=== PATIENT | male | born 1990 | race Hispanic/Latino ===

== ENCOUNTER 2021-11-13 13:13 | Inpatient (IN) | payer OTHER, SELFPAY ==
[2021-11-13 15:26] VITALS: BMI 20.5
[2021-11-13] MEDS ORDERED: Morphine 4 MG/ML VIAL SLOW IVP SCH (16:50)
[2021-11-13] MEDS ORDERED: Dextrose 50% Abboject 50 ML SYRINGE SLOW IVP PRN (16:59)
[2021-11-13] MEDS ORDERED: Dextrose 5% in Water 1,000 ML IV PRN (16:59)
[2021-11-13] MEDS ORDERED: Ondansetron PF 4 MG/2 ML Vial IVP PRN (16:59)
[2021-11-13] MEDS ORDERED: Morphine 4 MG/ML VIAL SLOW IVP PRN (16:59)
[2021-11-13] MEDS ORDERED: hydrALAZINE 20 MG/ML VIAL SLOW IVP PRN (16:59)
[2021-11-13] MEDS ORDERED: Sodium Chloride 0.9% 1,000 ML IV SCH (17:00)
[2021-11-13] MEDS: traMADol HCl 50 MG TAB PO SCH ×2 (17:50→23:10)
[2021-11-13] MEDS: Acetaminophen 500 MG TAB PO SCH ×2 (17:51→23:10)
[2021-11-13] MEDS: Dexamethasone 4 mg/ml Vial SLOW IVP SCH ×2 (18:49→23:09)
[2021-11-13] MEDS: Gabapentin 300 MG CAP PO SCH (20:10)
[2021-11-13] MEDS: Senokot S 8.6-50 MG TAB PO SCH (20:10)
[2021-11-13] MEDS: Famotidine 20 MG TAB PO SCH (20:11)
[2021-11-13] MEDS: Oxazepam 10 MG CAP PO SCH (22:44)
[2021-11-14] MEDS: Acetaminophen 500 MG TAB PO SCH ×4 (00:40→16:55)
[2021-11-14] MEDS: traMADol HCl 50 MG TAB PO SCH ×4 (00:40→16:55)
[2021-11-14] MEDS: Oxazepam 10 MG CAP PO SCH ×3 (05:36→21:47)
[2021-11-14] MEDS: Dexamethasone 4 mg/ml Vial SLOW IVP SCH ×3 (05:36→16:56)
[2021-11-14 05:58] LABS: #Lymphocytes 0.7 thou/uL (1.20-3.40); #Monocytes 0.2 thou/uL (0.11-0.59); #Neutrophils 9.6 thou/uL (1.40-6.50); %Basophils 0.1 % (0.0-1.0); %Eosinophils 0.1 % (0.0-10.0); %Lymphocytes 6.3 % (21.0-51.0); %Monocytes 1.8 % (0.0-10.0); %Neutrophils 91.6 % (42.0-75.0); Hemoglobin 14.3 g/dL (14.0-18.0); Mean Corpuscular HGB CONC 33.2 g/dL (32.0-36.0); Mean Corpuscular Hemoglobin 31.8 pg (27.0-31.0); Mean Corpuscular Volume 95.9 fL (78.0-98.0); Mean Platelet Volume 8.9 fL (7.4-10.4); Platelet Count 184 thou/uL (130-400); RBC Distribution Width 11.8 % (11.5-14.5); White Blood Cell (WBC) Count 10.5 thou/uL (4.8-10.8)
[2021-11-14 06:12] LABS: Anion Gap 13 mmol/L (10-20); BUN (Urea Nitrogen) 9 mg/dL (8.9-20.6); Calc. Creatinine Clearance 98 mL/min (70-130); Calcium 8.8 mg/dL (7.8-10.44); Carbon Dioxide 25 mmol/L (22-29); Chloride 100 mmol/L (98-107); Estimated GFR 122; Glucose 133 mg/dL (70-105); Magnesium 2.3 mg/dL (1.6-2.6); Phosphorus 2.7 mg/dL (2.3-4.7); Potassium 4.7 mmol/L (3.5-5.1); Sodium 133 mmol/L (136-145)
[2021-11-14] MEDS: Thiamine 100 MG TAB PO SCH (09:58)
[2021-11-14] MEDS: Famotidine 20 MG TAB PO SCH ×2 (09:58→21:47)
[2021-11-14] MEDS: Gabapentin 300 MG CAP PO SCH ×3 (09:58→21:47)
[2021-11-14] MEDS: Folic Acid 1 MG TAB PO SCH (09:58)
[2021-11-14] MEDS: Senokot S 8.6-50 MG TAB PO SCH ×2 (09:58→21:47)
[2021-11-14] MEDS: Polyethylene Glycol 3350 17 GM Packet PO SCH (09:58)
[2021-11-14] MEDS: Multivitamin W/ Minerals 1 TAB PO SCH (09:58)
[2021-11-14] MEDS ORDERED: ceFAZolin Sodium/D5W 2 GM in Premix Bag 1 BAG IVPB SCH (10:00)
[2021-11-14] MEDS ORDERED: fentaNYL Citrate/PF 100 MCG/2 ML SYRINGE ONE ×2 (10:31→13:05)
[2021-11-14] MEDS ORDERED: Dexmedetomidine 200 MCG/2 ML VIAL ONE (10:31)
[2021-11-14] MEDS ORDERED: CEFAZOLIN 2 GM VIAL ONE (10:34)
[2021-11-14] MEDS ORDERED: Sodium Chloride 0.9% 100 ML ONE (10:34)
[2021-11-14] MEDS ORDERED: Midazolam HCl 2 mg/2 ml Vial ONE (10:44)
[2021-11-14] MEDS ORDERED: Lidocaine 1% PF 5 ML VIAL ONE (10:54)
[2021-11-14] MEDS ORDERED: Rocuronium Bromide 10 MG/ML (10ML VIAL) ONE (10:54)
[2021-11-14] MEDS ORDERED: Ondansetron PF 4 MG/2 ML Vial ONE (10:54)
[2021-11-14] MEDS ORDERED: Dexamethasone 20 MG/5 ML VIAL ONE (10:54)
[2021-11-14] MEDS ORDERED: PROPOFOL 200 MG/20 ML VIAL ONE (10:54)
[2021-11-14] MEDS ORDERED: Ketorolac Tromethamine 30 MG/ML VIAL IVP PRN (12:45)
[2021-11-14] MEDS ORDERED: HYDROmorphone 2 MG/ML VIAL SLOW IVP PRN (12:45)
[2021-11-14] MEDS ORDERED: Promethazine HCl 25 MG/ML VIAL IVPB PRN (12:45)
[2021-11-14] MEDS ORDERED: Promethazine HCl 25 MG/ML VIAL IM PRN (12:45)
[2021-11-14] MEDS ORDERED: Meperidine HCl/PF 25 MG/ML VIAL SLOW IVP PRN (12:45)
[2021-11-14] MEDS ORDERED: Ondansetron HCl/PF 4 MG/2 ML Vial IVP PRN (12:45)
[2021-11-14] MEDS ORDERED: Ketorolac Tromethamine 30 MG/ML VIAL ONE (13:19)
[2021-11-14] MEDS: Cyclobenzaprine 10 MG TAB PO PRN (15:09)
[2021-11-15] MEDS: Acetaminophen 500 MG TAB PO SCH ×5 (00:30→23:14)
[2021-11-15] MEDS: traMADol HCl 50 MG TAB PO SCH ×5 (00:30→23:15)
[2021-11-15] MEDS: Dexamethasone 4 mg/ml Vial SLOW IVP SCH ×5 (00:30→23:15)
[2021-11-15] MEDS: Oxazepam 10 MG CAP PO SCH ×3 (05:26→23:14)
[2021-11-15 06:37] LABS: #Lymphocytes 0.8 thou/uL (1.20-3.40); #Monocytes 0.6 thou/uL (0.11-0.59); #Neutrophils 10.5 thou/uL (1.40-6.50); %Basophils 0.1 % (0.0-1.0); %Eosinophils 0.3 % (0.0-10.0); %Lymphocytes 6.9 % (21.0-51.0); %Monocytes 5.1 % (0.0-10.0); %Neutrophils 87.7 % (42.0-75.0); Hemoglobin 12.5 g/dL (14.0-18.0); Mean Corpuscular Hemoglobin 33.3 pg (27.0-31.0); Mean Platelet Volume 9.5 fL (7.4-10.4); Platelet Count 175 thou/uL (130-400); RBC Distribution Width 11.6 % (11.5-14.5); Red Blood Cell (RBC) Count 3.76 mill/uL (4.70-6.10)
[2021-11-15 07:22] LABS: Anion Gap 12 mmol/L (10-20); BUN (Urea Nitrogen) 9 mg/dL (8.9-20.6); Calc. Creatinine Clearance 96 mL/min (70-130); Calcium 8.4 mg/dL (7.8-10.44); Carbon Dioxide 24 mmol/L (22-29); Chloride 102 mmol/L (98-107); Estimated GFR 122; Glucose 151 mg/dL (70-105); Magnesium 2.2 mg/dL (1.6-2.6); Phosphorus 2.1 mg/dL (2.3-4.7); Potassium 4.4 mmol/L (3.5-5.1); Sodium 134 mmol/L (136-145)
[2021-11-15] MEDS ORDERED: Enoxaparin Sodium 40 MG/0.4 ML SYRINGE SC SCH (09:00)
[2021-11-15] MEDS: Gabapentin 300 MG CAP PO SCH ×3 (09:26→20:50)
[2021-11-15] MEDS: Polyethylene Glycol 3350 17 GM Packet PO SCH (09:27)
[2021-11-15] MEDS: Senokot S 8.6-50 MG TAB PO SCH ×2 (09:27→20:50)
[2021-11-15] MEDS: Multivitamin W/ Minerals 1 TAB PO SCH (09:27)
[2021-11-15] MEDS: Folic Acid 1 MG TAB PO SCH (09:27)
[2021-11-15] MEDS: Famotidine 20 MG TAB PO SCH ×2 (09:27→20:50)
[2021-11-15] MEDS: Thiamine 100 MG TAB PO SCH (09:28)
[2021-11-16] MEDS: Acetaminophen 500 MG TAB PO SCH ×4 (05:24→23:00)
[2021-11-16] MEDS: Oxazepam 10 MG CAP PO SCH (05:25)
[2021-11-16] MEDS: traMADol HCl 50 MG TAB PO SCH ×4 (05:25→23:01)
[2021-11-16] MEDS: Dexamethasone 4 mg/ml Vial SLOW IVP SCH ×4 (05:26→23:02)
[2021-11-16] MEDS ORDERED: Enoxaparin Sodium 30 MG/0.3 ML SYRINGE SC SCH (09:00)
[2021-11-16] MEDS: Thiamine 100 MG TAB PO SCH (09:02)
[2021-11-16] MEDS: Polyethylene Glycol 3350 17 GM Packet PO SCH (09:02)
[2021-11-16] MEDS: Multivitamin W/ Minerals 1 TAB PO SCH (09:03)
[2021-11-16] MEDS: Gabapentin 300 MG CAP PO SCH ×3 (09:03→21:30)
[2021-11-16] MEDS: Famotidine 20 MG TAB PO SCH ×2 (09:03→21:29)
[2021-11-16] MEDS: Senokot S 8.6-50 MG TAB PO SCH ×2 (09:03→21:30)
[2021-11-16] MEDS: Cephalexin 250 MG CAP PO SCH ×4 (09:03→21:30)
[2021-11-16] MEDS: Folic Acid 1 MG TAB PO SCH (09:04)
[2021-11-16] MEDS: Cyclobenzaprine 10 MG TAB PO PRN (16:08)
[2021-11-16] MEDS ORDERED: Midazolam HCl 2 mg/2 ml Vial SLOW IVP SCH ×2 (19:45→20:00)
[2021-11-16] MEDS ORDERED: Morphine 2 MG/ML VIAL SLOW IVP SCH (20:00)
[2021-11-17] MEDS: Acetaminophen 500 MG TAB PO SCH ×4 (06:38→23:09)
[2021-11-17] MEDS: traMADol HCl 50 MG TAB PO SCH ×4 (06:40→23:08)
[2021-11-17] MEDS: Dexamethasone 4 mg/ml Vial SLOW IVP SCH ×3 (06:42→23:10)
[2021-11-17] MEDS ORDERED: ISOVUE-370 76%-LOCM 1 ML ONE (08:00)
[2021-11-17] MEDS: Gabapentin 300 MG CAP PO SCH ×3 (08:31→21:21)
[2021-11-17] MEDS: Famotidine 20 MG TAB PO SCH ×2 (08:31→21:21)
[2021-11-17] MEDS: Cephalexin 250 MG CAP PO SCH ×4 (08:32→21:21)
[2021-11-17] MEDS: Folic Acid 1 MG TAB PO SCH (08:33)
[2021-11-17] MEDS: Thiamine 100 MG TAB PO SCH (08:35)
[2021-11-17] MEDS: Multivitamin W/ Minerals 1 TAB PO SCH (08:36)
[2021-11-17] MEDS: Polyethylene Glycol 3350 17 GM Packet PO SCH (08:39)
[2021-11-17] MEDS: Senokot S 8.6-50 MG TAB PO SCH ×2 (08:40→21:22)
[2021-11-18] MEDS: Acetaminophen 500 MG TAB PO SCH (05:18)
[2021-11-18] MEDS: Dexamethasone 4 mg/ml Vial SLOW IVP SCH (05:19)
[2021-11-18] MEDS: traMADol HCl 50 MG TAB PO SCH (05:19)
[2021-11-18] MEDS: Gabapentin 300 MG CAP PO SCH (08:21)
[2021-11-18] MEDS: Famotidine 20 MG TAB PO SCH (08:22)
[2021-11-18] MEDS: Folic Acid 1 MG TAB PO SCH (08:22)
[2021-11-18] MEDS: Senokot S 8.6-50 MG TAB PO SCH (08:22)
[2021-11-18] MEDS: Thiamine 100 MG TAB PO SCH (08:22)
[2021-11-18] MEDS: Cephalexin 250 MG CAP PO SCH (08:22)
[2021-11-18] MEDS: Multivitamin W/ Minerals 1 TAB PO SCH (08:22)
[2021-11-18] MEDS: Polyethylene Glycol 3350 17 GM Packet PO SCH (08:23)
[2021-11-18] MEDS ORDERED: Enoxaparin Sodium 40 MG/0.4 ML SYRINGE SC SCH (09:00)
[2021-11-18 12:23] VITALS: BP 146/86; TEMP 98.2
== END 2021-11-18 11:26 | disposition home or self-care (01) | DRG 459 ==
LOC: SURG B 13:13 → OBSVTOIN 16:59
PROVIDERS: ADMIT Surgery; ATTEND Surgery
PROC: 0RGA071 Fusion of Thoracolumbar Vertebral Joint with Autologous Tissue Substitute, Posterior Approach, Posterior Column, Open Approach (ICD-10-PCS; principal; 2021-11-14)
PROC: 0SG0071 Fusion of Lumbar Vertebral Joint with Autologous Tissue Substitute, Posterior Approach, Posterior Column, Open Approach (ICD-10-PCS; 2021-11-14)
PROC: 01N80ZZ Release Thoracic Nerve, Open Approach (ICD-10-PCS; 2021-11-14)
PROC: 01NB0ZZ Release Lumbar Nerve, Open Approach (ICD-10-PCS; 2021-11-14)
DX: S32.018A Other fracture of first lumbar vertebra, initial encounter for closed fracture (principal); S14.0XXA Concussion and edema of cervical spinal cord, initial encounter; S12.090A Other displaced fracture of first cervical vertebra, initial encounter for closed fracture; S32.502A Unspecified fracture of left pubis, initial encounter for closed fracture; S22.019A Unspecified fracture of first thoracic vertebra, initial encounter for closed fracture; S92.002A Unspecified fracture of left calcaneus, initial encounter for closed fracture; W19.XXXA Unspecified fall, initial encounter; Z20.822 Contact with and (suspected) exposure to COVID-19; M48.02 Spinal stenosis, cervical region; Y92.89 Other specified places as the place of occurrence of the external cause
CPT/HCPCS: 36415; 70496; 70498; 72141; 76000; 80048; 83735; 84100; 85025; C1713; C1768; J0360; J0690; J1100; J1650; J1885; J2250; J2270; J2405; J2704; J3370; J3490; J7050; Q9966

== ENCOUNTER 2021-11-30 08:41 | Outpatient (CLI) | payer SELFPAY | END 2021-11-30 08:42 | disposition home or self-care (01) | LOC: TBSIIMAG 08:41 | PROVIDERS: ATTEND Physician Assistant | DX: S32.011D Stable burst fracture of first lumbar vertebra, subsequent encounter for fracture with routine healing (principal); Z98.890 Other specified postprocedural states | CPT/HCPCS: 72100 ==

== ENCOUNTER 2021-12-13 09:42 | Outpatient (CLI) | payer SELFPAY | END 2021-12-13 09:43 | disposition home or self-care (01) | LOC: TBSIIMAG 09:42 | PROVIDERS: ATTEND Physician Assistant | DX: S32.011A Stable burst fracture of first lumbar vertebra, initial encounter for closed fracture (principal); M54.12 Radiculopathy, cervical region; M47.816 Spondylosis without myelopathy or radiculopathy, lumbar region | CPT/HCPCS: 72040; 72100 ==

== ENCOUNTER 2022-03-12 10:57 | Outpatient (CLI) | payer SELFPAY | END 2022-03-12 10:58 | disposition home or self-care (01) | LOC: TBSIIMAG 10:57 | PROVIDERS: ATTEND Neurological Surgery | DX: M54.12 Radiculopathy, cervical region (principal); S22.008A Other fracture of unspecified thoracic vertebra, initial encounter for closed fracture; S32.011A Stable burst fracture of first lumbar vertebra, initial encounter for closed fracture | CPT/HCPCS: 72040; 72100 ==